=== PATIENT | male | born 1980 | race Caucasian/White ===

== ENCOUNTER 2018-05-05 18:50 | Emergency (ER) | payer OTHER ==
[~2018-05-05] VITALS: Wt 83.9 kg
[2018-05-05 19:54] VITALS: BP 135/76
[2018-05-05] MEDS ORDERED: CYCLOBENZAPRINE10 MG PO (21:48)
[2018-05-05] MEDS ORDERED: ANAPROX DS550 MG PO (21:48)
== END 2018-05-05 21:49 | disposition home or self-care (01) ==
LOC: ED 18:50
DX: M54.2 Cervicalgia (principal); M25.552 Pain in left hip; M25.512 Pain in left shoulder; R10.30 Lower abdominal pain, unspecified; F17.200 Nicotine dependence, unspecified, uncomplicated